=== PATIENT | female | born 1980 | race Caucasian/White ===

== ENCOUNTER 2024-07-20 07:31 | Day surgery (SDC) | payer BC, MEDICARE ==
[2024-07-19 09:40] LABS: Absolute Lymphocytes (CBC) 1.6 K/uL (0.7-4.9); Absolute Monocytes 0.3 K/uL (0.1-1.3); Absolute Neutrophil 3.4 K/uL (1.8-8.0); Basophils % 0.4 % (0-1.3); Eosinophils % 0.9 % (0-4.4); Hematocrit 37.7 % (36.0-45.0); Hemoglobin 13.3 g/dL (12.0-15.0); Lymphocytes % 29.8 % (15.3-44.8); MCH 33.6 pg (27.0-35.0); MCHC 35.3 g/dL (32.0-36.0); MCV 95.2 fL (80-100); MPV 7.9 fL (7.6-11.3); Neutrophils % 62.9 % (41.7-73.7); Platelets 261 thou/uL (152-406); RBC Red Blood Cell Count 3.96 M/uL (3.86-4.86); Red Cell Distribution Width 12.5 % (12.1-15.2)
[2024-07-19 09:42] LABS: Specific Gravity 1.027 (1.005-1.030)
[2024-07-19 09:56] LABS: Anion Gap 9.1 mEq/L (5.0-15.0); Potassium 4.1 mEq/L (3.5-5.1)
[2024-07-20] MEDS ORDERED: BUPIVACAINE 0.5% PF 10 ML VIAL ONE (07:44)
[2024-07-20] MEDS ORDERED: LIDOCAINE 1% MPF 5 ML VIAL ONE (07:44)
[2024-07-20] MEDS ORDERED: FENTANYL CITR 100 MCG/2 ML ONE ×2 (07:44→10:39)
[2024-07-20] MEDS ORDERED: MIDAZOLAM HCL 2 MG/2 ML INJ ONE ×2 (07:44→10:39)
[2024-07-20] MEDS ORDERED: EPINEPHRINE 1 MG/ML VIAL ONE (07:45)
[2024-07-20] MEDS ORDERED: dexAMETHasone 10 MG/ML VIAL ONE ×2 (07:45→10:39)
[2024-07-20] MEDS ORDERED: Ringers Lactate 1,000 ML IV ONE (07:50)
[2024-07-20] MEDS: CEFAZOLIN SODIUM 1 GM/VIAL ONE (10:29)
[2024-07-20] MEDS ORDERED: ONDANSETRON 4 MG/2 ML VIAL ONE (10:39)
[2024-07-20] MEDS ORDERED: ROCURONIUM 50 MG/5 ML VIAL IV ONE (10:39)
[2024-07-20] MEDS ORDERED: LIDOCAINE 2% MPF 5 ML VIAL ONE (10:39)
[2024-07-20] MEDS ORDERED: propofoL 200 MG/20 ML VIAL IV ONE (10:39)
[2024-07-20] MEDS ORDERED: KETOROLAC 30 MG/ML INJ ONE (10:39)
[2024-07-20] MEDS ORDERED: NS 0.9% VIAL 20 ML ONE (11:27)
[2024-07-20] MEDS: Ringers Lactate 1,000 ML IV ONE (11:39)
[2024-07-20] MEDS ORDERED: GLYCOPYRROLATE 0.2 MG/ML SYR ONE (12:02)
[2024-07-20] MEDS ORDERED: NEOSTIGMINE 1 MG/ML -10 ML VIAL ONE (12:02)
--- NOTE | 2024-07-20 15:12 | OP ---
Date of Procedure: 07/20/2024 Surgeon: Fritz Gudino MD Preoperative Diagnoses: 1. Right shoulder acromioclavicular joint arthritis. 2. Probable rotator cuff fraying with impingement. Postoperative Diagnoses: 1. AC joint arthritis. 2. Some fraying of the biceps anchor as well as hypertrophy of the bursa. Procedures: 1. Arthroscopic limited debridement of the biceps anchor and exploration of undersurface of rotator c uff. 2. Mini open AC joint and distal clavicle resection. Estimated Blood Loss: 20 cc. Complications: There were no complications. Specimens: No pathology specimens sent. Indication For Operation: Ms. Minor is a patient who came to see me with complaints of right shou lder pain. The pain was primarily in the region of the AC joint. injections and other co nservative measures, which failed to alleviate her symptoms. Risks, benefits, and alternatives of di fferent methods of treating this have been discussed with the patient. At this time she opts for ope rative intervention, which is to include arthroscopic exploration, possible intra-articular debrideme nt with mini open acromioclavicular joint resection, subacromial decompression, and exploration of th e bursal surface of the rotator cuff. She says she understands things as presented including risks, benefits, and alternatives, and agrees to proceed. Description Of Procedure: The patient was taken to the operating room after block had been obtained. General anesthesia was then obtained and she was placed in the beach chair position. Right upper e xtremity was then prepped and draped in usual sterile fashion with care being taken to protect all nohemy ny prominences and positioning. After this, the arthroscopy was placed through a standard posterior incision. Visualization demonstrates a very mild fraying of the biceps anchor. Following this, an a nterior incision was then made to use as a working portal and a trocar was placed. Use of a probe as well as movement of the shoulder was used to identify any fraying of the undersurface of rotator cuf f actually appeared to be very good with no undersurface rotator cuff tearing, which is directly amen able to arthroscopic intervention. Following this, the posterior portal was shut and all gloves and equipment were changed. The arm was then again re-prepped and a small incision was made longitudinal ly in the region of the AC joint, which was easily palpated because it was quite a bit enlarged. Fol lowing this, the acromion is established, and a small amount of deltoid was removed from the anterior surface of the acromion. There was a downward projecting spur and a combination of rasp as well as acromioplasty was then done to supply very good outlet. The deltoid was tagged for later repair. At tention was then turned to the AC joint, which was easily found and the terminal end of the clavicle was then removed using a saw, was checked for any remaining bone, also fingers placed and cross adduc tion does not demonstrate any impingement. Under surface was checked, but the inferior ligaments are preserved. Following this, some bursa was removed, which appeared to be redundant and attention was then turned to the rotator cuff. The arm was brought through range of motion to assess the rotator cuff and rongeur was used to gently pull and palpate and there was found to be no change in either mo rphology or soft spots. Decision was made not to place any suture. After this, it was irrigated, it was again checked and the deltoid was then repaired back including over the clavicle as well as thro ugh bone tunnel and oversewn over the clavicle. Following this, the skin was irrigated and skin was closed using Vicryl as well as wilbert. The patient was placed in Aquacel dressing, awakened, and ta thomas to the recovery room in good condition. /PREM Voice ID: [id number] Report ID: [id number]
[2024-07-20 16:22] VITALS: BP 119/77; O2SAT 97
[2024-07-20 16:24] VITALS: TEMP 97
== END 2024-07-20 13:53 | disposition home or self-care (01) ==
LOC: OR 07:31
PROVIDERS: ATTEND Orthopaedic Surgery
PROC: 0PB90ZZ Excision of Right Clavicle, Open Approach (ICD-10-PCS; 2024-07-20)
PROC: 0RBJ4ZZ Excision of Right Shoulder Joint, Percutaneous Endoscopic Approach (ICD-10-PCS; principal; 2024-07-20 09:45)
DX: M75.111 Incomplete rotator cuff tear or rupture of right shoulder, not specified as traumatic (principal)
CPT/HCPCS: 36415; 80048; 81025; 85025; A4216; J0171; J0690; J1100; J2003; J2250; J2405; J2704; J2710; J3010; J7120